=== PATIENT | male | born 2000 ===

== ENCOUNTER 2023-08-28 12:12 | Emergency (ER) | payer MEDICAID, OTHER, SELFPAY ==
[2023-08-28 12:47] VITALS: BP 113/67; PULSE 82; RESP 20; TEMP 37.1; O2SAT 98; BMI 26.2
--- NOTE | 2023-08-28 12:48 | ED.GENADULT ---
HPI - General Adult General Chief complaint: Upper Respiratory Symptoms Stated complaint: quest sinus infection Time Seen by Provider: 08/28/23 14:39 History of Present Illness HPI narrative: Patient complains of runny nose and body aches since yesterday, along with some congestion, he is otherwise fine he is tolerating p.o. is not short of breath he has no chest pain no abdominal pain no nausea vomiting or diarrhea no sore throat no sputum no cough no rash Related Data Previous Rx's Medication Instructions Recorded acetaminophen 500 mg tablet 1,000 mg (2 x 500 mg) PO QID PRN 08/28/23 pain #30 tabs nirmatrelvir 300 mg (150 mg See Rx Instructions PO .COMPLEX 08/28/23 x2)-ritonavir 100 mg tablet,dose #30 ea pack (Paxlovid) oxymetazoline 0.05 % nasal spray 2 spray intranasal Q12H PRN nasal 08/28/23 congestion 4 days #30 mL Allergies Allergy/AdvReac Type Severity Reaction Status Date / Time amoxicillin Allergy Hives Verified 08/28/23 12:50 PMFSH Past Medical History Source: nursing notes reviewed Social History Social History Advance Directives: No Advance Directives Information Provided: No Physical Exam ED Vital Signs: Vital Signs - 24 hr 08/28/23 12:47 Temperature 98.8 F Pulse Rate 82 Respiratory Rate 20 Blood Pressure 113/67 Pulse Oximetry 98 Oxygen Delivery Method Room Air BMI result Body Mass Index 26.2 General appearance is comfortable, cooperative no acute distress Eyes no redness or discharge The pharynx is clear without redness swelling or exudate mucous membranes are moist voice is normal The neck is supple The chest is clear to auscultation bilateral with full symmetric equal breath sounds Heart no murmur Abdomen soft nontender Extremities range of motion x4 Skin no rash Neuro no focal deficits Course Course Course Narrative: This is an RME: Additional HPI, ROS, PE not included below will be deferred to primary provider. This is a [id number]-male, with a hx of asthma and anxiety, presenting to the emergency department with complaints of sinus congestion and headaches x 1 day. Plan: Viral swabs/strep test Well-appearing patient was main symptom is body aches minor fatigue and a runny nose but otherwise very well-appearing with a normal exam tested positive for COVID He is given a prescription for paxlovid and is discharged Medical Decision Making Lab Data Labs: Lab Results 08/28/23 Range/Units 13:04 Influenza Type A (PCR) NEGATIVE (Negative) Influenza Type B (PCR) NEGATIVE (Negative) RSV RNA Qual (PCR) NEGATIVE (Negative) SARS-CoV-2 RNA (RT-PCR) POSITIVE A (Negative) S. pyogenes GrpA DONNELL Negative (Negative) Discharge Plan Discharge Clinical Impression: COVID Patient Disposition: Home, Self-Care Additional Instructions: You tested positive for COVID, but for were very well appearing, and your exam was normal I wrote the prescription for the COVID medicine paxlovid which is usually very well tolerated The side effect that some people experience is nausea or stomach upset and if this happens and is too much you can stop the medication if it is tolerable continue the medication Return any time any worse condition or any concerns Prescriptions: New Paxlovid 300 mg (150 mg x 2)-100 mg tablets,dose pack See Rx Instructions .ROUTE .COMPLEX Qty: 30 0RF Rx Instructions: take TWO 150 mg tablets of nirmatrelvir with ONE 100 mg tablet of ritonavir twice daily for 5 days oxymetazoline 0.05 % spray,non-aerosol 2 spray intranasal Q12H PRN (Reason: nasal congestion) 4 Days Qty: 30 0RF acetaminophen 500 mg tablet 1,000 mg PO QID PRN (Reason: pain) Qty: 30 0RF Stand Alone Forms: Work/School Release
[2023-08-28 13:21] LABS: IDNOW Serial# 08D9AD1C; Strep A Nucleic Acid Negative (Negative)
[2023-08-28 14:13] LABS: Influenza A PCR NEGATIVE (Negative); Influenza B PCR NEGATIVE (Negative); Resp Syncy Virus RNA Qual PCR NEGATIVE (Negative); SARS COV2 PCR INHOUSE POSITIVE (Negative)
== END 2023-08-28 15:55 | disposition home or self-care (01) ==
PROVIDERS: Physician Assistant Medical; Emergency Provider Emergency Medicine
DX: U07.1 COVID-19 (principal); M91.0 Juvenile osteochondrosis of pelvis; R09.89 Other specified symptoms and signs involving the circulatory and respiratory systems; Z79.899 Other long term (current) drug therapy
CPT/HCPCS: 0241U; 87651; 99282; 99283

== ENCOUNTER 2024-05-08 14:13 | Outpatient (AMB) | payer OTHER, SELFPAY ==
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
[2024-05-08 14:25] VITALS: BP 122/80; PULSE 67; O2SAT 98; BMI 29.0
== END 2024-05-08 15:12 | disposition home or self-care (01) ==
PROVIDERS: Visit Provider Physician Assistant
DX: S33.5XXA Sprain of ligaments of lumbar spine, initial encounter (principal); V89.2XXA Person injured in unspecified motor-vehicle accident, traffic, initial encounter; M62.838 Other muscle spasm
CPT/HCPCS: 99204

== ENCOUNTER 2024-06-04 07:58 | Outpatient (AMB) | payer OTHER, SELFPAY ==
[2024-06-04 08:00] VITALS: BP 102/68; PULSE 71; O2SAT 96; BMI 28.7
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
== END 2024-06-04 08:56 | disposition home or self-care (01) ==
DX: M25.522 Pain in left elbow (principal); M54.50 Low back pain, unspecified; V89.2XXA Person injured in unspecified motor-vehicle accident, traffic, initial encounter; Z04.3 Encounter for examination and observation following other accident

== ENCOUNTER → 2024-06-04 07:58 | Outpatient (BNVA) | payer OTHER, SELFPAY | DX: M54.50 Low back pain, unspecified (principal); M25.522 Pain in left elbow; V89.2XXD Person injured in unspecified motor-vehicle accident, traffic, subsequent encounter | CPT/HCPCS: 96127; 99202 ==

== ENCOUNTER 2024-07-04 09:49 | Outpatient (AMB) | payer OTHER, SELFPAY ==
[2024-07-04 09:50] VITALS: BP 114/66; PULSE 67; O2SAT 97; BMI 29.0
--- NOTE | 2024-07-04 09:50 | A.OFFPC_ITS ---
Vital Signs 3 07/04/24 09:50 Height 5 ft 3 in Weight 164 lb BMI 29.0 BP 114/66 Blood Pressure Location Lt brachial Position Sitting Pulse 67 Pulse Source Pulse Oximeter Pulse Oximetry (%) 97 Oxygen Delivery Method Room Air Intake Visit Reasons: Annual Exam Rerecording Mixer Required: No Allergies amoxicillin Allergy (Verified 07/04/24 10:12) Hives Medication List - Last Reconciled 07/04/24 by Lita Wray PA-C nicotine (polacrilex) 4 mg buccal Q2H valacyclovir 500 mg PO BID 6 days Tobacco use date assessed: 07/04/24 Dental Screening Dental Screen Date: 06/04/24 Did you have a dental visit in the last 12 months?: Yes Did you have a dental problem in the last 6 months where you did not have access to dental care?: No Was dental information given to patient?: Patient has dentist HPI Annual Exam 2 HPI0 Details 24-year-old male with past medical histo ry of asthma, ADHD, PTSD and herpes simplex virus coming in for annual exam. Patient has not been working with physical therapy for his back or elbow pain. He began working with a chiropractor for his back pain several weeks ago which has been improving he sees a chiropractor Monday and Monday. He also mentions he has a lesion on his forehead which began initially as a pimple which he picked at which then change to a skin tag which he removed twice. The lesion has returned and is painful and we will bleed when he picks at it. He has a history of depression anxiety and declines the need for medication or counselor at this time. [facility] Social History Housing: Apartment Patient Tobacco Use Status: Current everyday Tobacco user Tobacco use type: Cigar Cigarettes Per Day: 2 service: No Current occupational status: employed Cognitive needs: No Hearing needs: No Vision needs: No Questionnaire PHQ-9 Over the last 2 weeks, how often have you been bothered by any of the following problems? 1. Little interest or pleasure in doing things: several days 2. Feeling down, depressed, or hopeless: several days 3. Trouble falling or staying asleep, or sleeping too much: several days 4. Feeling tired or having little energy: several days 5. Poor appetite or overeating: several days 6. Feeling bad about yourself - or that you are a failure or have let yourself or your family down: several days 7. Trouble concentrating on things, such as reading the newspaper or watching television: several days 8. Moving or speaking so slowly that other people could have noticed. Or the opposite - being so fidgety or restless that you have been moving around a lot more than usual: not at all 9. Thoughts that you would be better off or of hurting yourself in some way: not at all Total score: 7 Depression Screening Interpretation: Positive Depression Screening Follow-up: Existing condition and Declines treatment Depression Screening Done: Yes 99314 - PHQ-9 Billing: Yes Source: Developed by Drs. Jonathan Hsu, Rohini Rios, Aj Bishop and colleagues, with an educational radha from [employer]. Thrive Questionnaire Date Thrive assessed: 06/04/24 AUDIT C Alcohol Use Questionnaire (AUDIT-C) 1. How often do you have a drink containing alcohol?: Monthly or less 2. How many drinks containing alcohol do you have on a typical day when you are drinking?: 1 or 2 3. How often do you have six or more drinks on one occasion?: Less than monthly Total Score: 2 DOMENICO-7 AMB Questionnaire DOMENICO-7 Date DOMENICO - 7 assessed: 06/04/24 Feeling nervous, anxious, or on edge: 1 = Several days Not being able to stop or control worryin = More than half the days Worrying too much about different things: 2 = More than half the days Trouble relaxin = More than half the days Being so restless that it is hard to sit still: 2 = More than half the days Becoming easily annoyed or irritable: 2 = More than half the days Feeling afraid as if something awful might happen: 2 = More than half the days Total DOMENICO-7 score (0-4 normal; 5-9 mild; 10-14 moderate; 15-21 severe): 13 Source: Developed by Drs. Jonathan Hsu, Rohini Rios, Aj Bishop and colleagues, with an educational radha from [employer]. DOMENICO-7 Assessment Billing DOMENICO-7 Assessment Tool: DOMENICO-7 Assessment 87321 Review of Systems Const Denies body aches, Denies fatigue, Denies fever(s), Denies frequent falls, Denies headache(s) and Denies weakness Eyes Reports blurry vision and Denies change in vision ENT Denies dysphagia, Denies dizziness, Denies facial pain, Denies headache(s), Denies nasal congestion and Denies odynophagia Card Denies chest pain, Denies syncope, Denies irregular heart rhythm, Denies leg edema, Denies lightheadedness and Denies dyspnea Resp Denies cough and Denies dyspnea GI Denies abdominal pain, Denies constipation, Denies dysphagia, Denies dyspepsia, Reports diarrhea, Denies nausea, Denies odynophagia and Denies vomiting Denies dysuria, Denies urinary frequency, Denies urinary hesitancy and Denies urinary urgency Musc Details: Elbow pain Reports back pain and Denies myalgias Skin/Breast Reports as per HPI Neuro Denies dizziness, Denies syncope, Denies frequent falls, Denies headache(s) and Denies weakness Psych Reports anxiety and Reports depression Endo Denies fatigue Physical exam (Primary Care) Vital Signs: Last Vital Signs Pulse 67 07/04/24 09:50 BP 114/66 07/04/24 09:50 Pulse Ox 97 07/04/24 09:50 Oxygen Delivery Method Room Air 07/04/24 09:50 BMI result Body Mass Index 29.0 Tobacco/Smoking Status: Tobacco use Status Tobacco use date assessed 07/04/24 07/04/24 09:54 Patient Tobacco Use Status Current everyday Tobacco 07/04/24 09:54 Tobacco use type Cigar 07/04/24 09:54 PHQ-9: PHQ-9 Score PHQ-9: Total score 7 07/04/24 10:25 Depression Screening Interpretation: Positive Depression Screening Follow-up: Existing condition and Declines treatment Thrive Assessment: Date of Thrive Assessment Date Thrive assessed 06/04/24 07/04/24 09:54 Const General: cooperative, healthy appearing, comfortable and no acute distress Orientation/consciousness: patient oriented x3 HENMT Head: Yes normocephalic Ears: hearing grossly normal bilaterally, external ears normal, TM's normal bilaterally and EAC's normal General nose exam: Normal external nose present Face and sinus: Yes normal facial exam and Yes sinuses nontender Mouth: Normal oral and palatal mucosa present and tongue normal Throat: Yes posterior oropharynx normal Eyes General: appearance normal, both eyes and all related structures Conjunctivae: conjunctivae normal Pupils: Equal, round and reactive pupils present EOM: EOMs intact bilaterally and No Nystagmus present Neck Neck: Yes normal visual inspection, Yes full ROM and Yes no lymphadenopathy Chest Chest palpation & inspection: normal inspection of the chest Resp Effort & Inspection: normal respiratory effort Auscultation: clear to auscultation bilaterally, no crackles, no rales, no rhonchi, no wheezes and breath sounds present Cardio Rate: regular rate Rhythm: regular rhythm Peripheral pulses: radial pulses present and dorsalis pedis present GI Inspection: Yes normal to inspection and No Abdominal wall edema Palpation (GI): Soft to palpation, not firm and nontender Auscultation: normal bowel sounds Rectal Exam - Male: Yes deferred General: Yes no CVA tenderness Back/Spine/Pelvis Back: no CVA tenderness Skin Other: 1-2 cm lesion on left side of forehead that does not appear infected Full body images: 2 1. Lesion on forehead Neuro General: patient oriented x3 Cranial nerves: Yes Equal, round and reactive pupils present, Yes Midline tongue present, Yes Ability to bilaterally elevate shoulders present and No Nystagmus present Gait exam (Neuro): Normal gait present Extrem General: Yes normal to inspection, Yes full ROM, No no pedal edema and No edema Psych Speech and movement: Normal speech and movement present Affect: normal affect Insight: Good insight present (Psych) Judgement: Good judgement present (Psych) Office Procedures Flu Questionnaire Does the patient have a severe egg allergy?: No Does the patient have severe life threatening allergies?: No Does the patient have a fever or illness today?: No Has the patient ever had Guillain-Vauxhall Syndrome?: No Has the patient ever had any past reaction to a flu shot?: No Immunizations Fluarix Triv [id number] (PF) 45 mcg (15 mcg x 3)/0.5 mL IM syringe Performing Provider: Lita Wray PA-C [place] [facility] [facility] Administered by: ANGIE Puente on 07/04/24 09:56 2 Dose Route Admin Location Dispensed Lot Number Expiration Date [facility] [employer] 0.5 mL IM Left Deltoid 0.5 mL [id number] 03/10/25 [id number] GLAXOSMITHKLINE 2 VIS Given Date VIS Provided VIS Publication Date 07/04/24 Single Vaccine 21 Eligibility Eligibility Date Funding Source Not VFC Eligible 07/04/24 Private Boostrix Tdap 2.5 Lf unit-8 mcg-5 Lf/0.5 mL intramuscular syringe Performing Provider: Lita Wray PA-C [place] [facility] Administered by: ANGIE Puente on 07/04/24 10:25 2 Dose Route Admin Location Dispensed Lot Number Expiration Date NDC [employer]r 0.5 mL IM Right Deltoid 0.5 mL [id number] 06/08/25 [id number] GLAXOSMITHKLINE 2 VIS Given Date VIS Provided VIS Publication Date 07/04/24 Single Vaccine 21 Eligibility Eligibility Date Funding Source Not [facility] Eligible 07/04/24 Private Coding Level of Care Code Est Pt Level 3 (36946) Est Pt Prev Care 18-39y(84223) Diagnoses PTSD (post-traumatic stress disorder) F43.10 ADHD F90.9 Asthma J45.909 Herpes simplex B00.9 Annual physical exam Z00.00 Atypical nevi D22.9 Low back pain M54.50 Elbow pain M25.529 Additional Codes DOMENICO-7 Assessment Billing - DOMENICO-7 Assessment Tool: DOMENICO-7 Assessment 84831 ([id number]) Assessment & Plan Assessment & Plan (1) PTSD (post-traumatic stress disorder): Code(s): F43.10 - Post-traumatic stress disorder, unspecified Category: Medical Plan: Declines the need for medication or counselor at this time. (2) ADHD: Code(s): F90.9 - Attention-deficit hyperactivity disorder, unspecified type Category: Medical Plan: Declines treatment at this time. (3) Asthma: Code(s): J45.909 - Unspecified asthma, uncomplicated Category: Medical Plan: Asthma currently controlled without medication management. Avoid triggers such as allergies. (4) Herpes simplex: Code(s): B00.9 - Herpesviral infection, unspecified Category: Medical Plan: Continue on valacyclovir as needed. Reviewed how to prevent the spread of herpes simplex virus. (5) Annual physical exam: Code(s): Z00.00 - Encounter for general adult medical examination without abnormal findings Category: Medical Plan: Patient is up-to-date on all recommended routine screenings and vaccinations for his age. Ordered for updated blood work and we will follow up in 1 year or sooner pending blood work results or if patient has additional concerns. (6) Atypical nevi: Code(s): D22.9 - Melanocytic nevi, unspecified Category: Medical Plan: Lesion on the forehead unclear etiology referral placed to Dermatology for further evaluation. (7) Low back pain: Code(s): M54.50 - Low back pain, unspecified Category: Medical Plan: Continue to work with chiropractor as this seems to be improving. Continue to use Tylenol and ibuprofen as needed as well as topical muscle rubs. (8) Elbow pain: Code(s): M25.529 - Pain in unspecified elbow Category: Medical Plan: Advised patient to follow up with physical therapy as he has not been evaluated or treated for this concern and continues to have symptoms. Plan This note was constructed using voice recognition software. While every effort has been made to ensure accuracy and sales and distribution clerk, still areas may have been included sometimes these areas may affect the content or meeting of the given symptoms. Total time spent caring for the patient today was 30 minutes. This includes time spent before the visit reviewing the chart, time spent during the visit, and time spent after the visit and documentation. Orders: Orders 2 Complete Blood Count Auto Diff Today Z00.00 - Encounter for general adult medical examination without abnormal findings TSH reflex Free T4 Today Z00.00 - Encounter for general adult medical examination without abnormal findings Vitamin B12 and Folate Today Z00.00 - Encounter for general adult medical examination without abnormal findings Vitamin D 25-OH (D2 and D3) Today Z00.00 - Encounter for general adult medical examination without abnormal findings Influenza [id number] Immunization Today Z23 - Encounter for immunization TDaP Immunization Today Z23 - Encounter for immunization Comprehensive Met. Panel Today Z00.00 - Encounter for general adult medical examination without abnormal findings Free T4 (Free Thyroxine) Today Z00.00 - Encounter for general adult medical examination without abnormal findings Referrals 2 Dermatology Referral D22.9 - Melanocytic nevi, unspecified
== END 2024-07-04 10:37 | disposition home or self-care (01) ==
DX: Z00.00 Encounter for general adult medical examination without abnormal findings (principal); J45.909 Unspecified asthma, uncomplicated; F43.10 Post-traumatic stress disorder, unspecified; F90.9 Attention-deficit hyperactivity disorder, unspecified type; B00.9 Herpesviral infection, unspecified; D22.9 Melanocytic nevi, unspecified; M54.50 Low back pain, unspecified; M25.522 Pain in left elbow

== ENCOUNTER → 2024-07-04 09:49 | Outpatient (BNVA) | payer OTHER, SELFPAY | DX: Z00.01 Encounter for general adult medical examination with abnormal findings (principal); Z23 Encounter for immunization; F43.10 Post-traumatic stress disorder, unspecified; F90.9 Attention-deficit hyperactivity disorder, unspecified type; J45.909 Unspecified asthma, uncomplicated; B00.9 Herpesviral infection, unspecified; C22.9 Malignant neoplasm of liver, not specified as primary or secondary; M54.50 Low back pain, unspecified | CPT/HCPCS: 90471; 90472; 90656; 90715; 96127; 99212; 99395 ==

== ENCOUNTER 2025-02-16 09:28 | Emergency (ER) | payer OTHER, SELFPAY ==
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
[2025-02-16 09:38] VITALS: BP 113/66; BP 152/88; PULSE 100; PULSE 93; RESP 18; TEMP 36.7; O2SAT 97; O2SAT 98; BMI 28.3
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
[2025-02-16] MEDS: Ibuprofen 600 MG TABLET PO (11:17)
[2025-02-16] MEDS: Acetaminophen 325 MG TABLET 650 MG PO (11:18)
[2025-02-16 13:03] VITALS: BP 113/66; PULSE 93; RESP 18; TEMP 36.7; O2SAT 98
== END 2025-02-16 13:05 | disposition home or self-care (01) ==
PROVIDERS: Emergency Provider Emergency Medicine
DX: S63.602A Unspecified sprain of left thumb, initial encounter (principal); S20.212A Contusion of left front wall of thorax, initial encounter; S50.11XA Contusion of right forearm, initial encounter; V43.52XA Car driver injured in collision with other type car in traffic accident, initial encounter; Y93.89 Activity, other specified; Y92.411 Interstate highway as the place of occurrence of the external cause; Y99.9 Unspecified external cause status
CPT/HCPCS: 71101; 73090; 73130; 99283; 99284

== ENCOUNTER → 2025-02-16 10:55 | Outpatient (BNV) | payer SELFPAY | PROVIDERS: Emergency Provider Emergency Medicine; Visit Provider Radiology Diagnostic Radiology | DX: R07.89 Other chest pain (principal); M79.645 Pain in left finger(s); M79.631 Pain in right forearm | CPT/HCPCS: 71101; 73090; 73130 ==

== ENCOUNTER 2025-08-03 11:16 | Emergency (ER) | payer OTHER, SELFPAY ==
[2025-08-03 11:42] VITALS: BP 117/66; PULSE 64; RESP 16; TEMP 36.4; O2SAT 98; BMI 24.8
--- NOTE | 2025-08-03 11:47 | ED_ITS ---
HPI - General Adult General Chief complaint: Skin/Abscess/Foreign Body Stated complaint: lump on groin? Time Seen by Provider: 08/03/25 12:12 Source: patient Mode of arrival: ambulatory Limitations: no limitations History of Present Illness ED Provider: Carol Diaz APRN HPI narrative: 25-year-old male with a history of genital herpes who presents the ER with complaints of painful area to the shaft of the penis with swelling 4 days. patient reports he noticed a pimple on the shaft of his penis with an ingrown hair and he manipulated it with his fingers until he was able to get some pus out. Since then he has noticed increased swelling and pain to the area. No fevers, chills, urinary symptoms. Patient reports he has not had a new sexual partner and more than 3 months but would like to be tested for STDs. Will hold on treatment until he knows what his results are. Related Data Previous Rx's ?Medication ?Instructions ?Recorded nicotine (polacrilex) 4 mg gum 4 mg buccal Q2H #40 ea 06/04/24 valacyclovir 500 mg tablet 500 mg PO BID 6 days #12 ta bs 06/04/24 cyclobenzaprine 10 mg tablet 10 mg PO TID PRN muscle s pasm #10 02/16/25 tabs lidocaine 5 % topical patch 1 patch topical DAILY #15 ea 02/16/25 doxycycline monohydrate 100 mg 100 mg PO BID #14 caps 08/03/25 capsule Allergies Allergy/AdvReac Type Severity Reaction Status Date / Time amoxicillin Allergy Hives Verified 08/03/25 11:47 Review of Systems 2 Review of Systems: Yes all other systems are reviewed and are negative Constitutional: Constitutional: Reports no additional constitutional complaints, Denies body ache(s), Denies chills, Denies fever(s), Denies headache(s) and Denies weakness Eyes: Eyes: Reports no additional eye complaints and Denies change in vision ENT: Reports system reviewed and no additional complaints, except as documented, Denies dizziness, Denies headache(s), Denies nasal congestion, Denies nasal discharge and Denies neck pain Cardiovascular: Cardiovascular: Reports no additional cardiovascular complaints, Denies chest pain, Denies leg edema and Denies dyspnea Respiratory: Respiratory: Reports no additional respiratory complaints, Denies cough and Denies dyspnea Gastrointestinal: Gastrointestinal: Reports no additional gastrointestinal complaints, Denies abdominal pain, Denies diarrhea, Denies nausea and Denies vomiting Genitourinary: Genitourinary: Denies urinary incontinence Musculoskeletal: Musculoskeletal: Reports no additional musculoskeletal complaints, Denies back pain, Denies arthralgias, Denies joint swelling, Denies neck pain, Denies numbness and Denies tingling Integumentary/Breasts: Skin/Breast: Reports system reviewed and no additional complaints, except as docu, Reports furuncle, Reports swelling, Reports erythema and Denies rash Neurologic: Reports system reviewed and no additional complaints, except as documented, Denies Abnormal speech present, Denies dizziness, Denies headache(s), Denies numbness, Denies tingling and Denies weakness PMFSH Past Medical History Attestation statement: The following information was validated with the patient. Source: old records reviewed and nursing notes reviewed Social History Social History Housing: Apartment Patient Tobacco Use Status: Current everyday Tobacco user Tobacco use type: Cigar Cigarettes Per Day: 2 Smoked in Last 30 Days: No Substance Use Type: Marijuana Advance Directives: No Advance Directives Information Provided: Yes service: No Current occupational status: employed Cognitive needs: No Hearing needs: No Vision needs: No Physical Exam ED Vital Signs: Vital Signs - 24 hr 08/03/25 11:42 08/03/25 12:10 08/03/25 14:04 Temperature 97.6 F 97.8 F 98 F Pulse Rate 64 66 70 Respiratory Rate 16 16 16 Blood Pressure 117/66 115/54 L 123/47 L Pulse Oximetry 98 99 98 Oxygen Delivery Method Room Air Room Air Room Air BMI result Body Mass Index 24.8 Const General: cooperative, healthy appearing, comfortable and no acute distress Orientation/consciousness: patient oriented x3 Limitations: no limitations HENMT Head: Yes normal to inspection Ears: hearing grossly normal bilaterally General nose exam: Normal external nose present Face and sinus: Yes normal facial exam Mouth: Normal oral and palatal mucosa present Throat: Yes posterior oropharynx normal Eyes General: appearance normal, both eyes and all related structures Pupils: Equal, round and reactive pupils present Neck Neck: Yes normal visual inspection Chest Chest palpation & inspection: normal inspection of the chest Resp Effort & Inspection: normal respiratory effort Auscultation: clear to auscultation bilaterally Cardio Rate: regular rate Rhythm: regular rhythm Peripheral pulses: Peripheral pulses 2+ throughout GI Inspection: Yes normal to inspection Palpation (GI): Soft to palpation and nontender Auscultation: normal bowel sounds Other: Deana LAURENT dioramist Male genitals images: 2 1. There is an abscess present with ecchymosis surrounding this. There is no fluctuance. No lymphadenopathy Back/Spine/Pelvis Thoracic/Lumbar Spine: thoracic and lumbar spine normal to inspection Skin General skin exam: no rashes or lesions noted Neuro General: patient oriented x3, no focal motor deficits and normal sensation to monofilament Cranial nerves: Yes Equal, round and reactive pupils present Cognition (Neuro): normal cognition Speech: No Abnormal speech present Gait exam (Neuro): Normal gait present Motor exam (neuro): 5/5 motor strength present throughout Extrem General: Yes normal to inspection Course Course Course Narrative: Rapid medical examination performed in triage by Freida Delgadillo PA-C: Patient is a 25 year old assigned male at presenting to the emergency department with a lump on his scrotum. Patient states he had a small lump on his scrotum and he tried to open it but it has gotten much bigger. Detailed physical exam and review of systems are deferred to the collection specialist. Labs ordered. Patient placed back in the waiting room pending room availability and results. Medical Decision Making Medical Decision Making [facility] Narrative: 25-year-old male with a history of genital herpes who presents the ER with complaints of painful area to the shaft of the penis with swelling 4 days. patient reports he noticed a pimple on the shaft of his penis with an ingrown hair and he manipulated it with his fingers until he was able to get some pus out. Since then he has noticed increased swelling and pain to the area. No fevers, chills, urinary symptoms. Patient reports he has not had a new sexual partner and more than 3 months but would like to be tested for STDs. Will hold on treatment until he knows what his results are. There is an abscess present on the dorsal aspect of the shaft of the penis with ecchymosis surrounding this. There is no fluctuance. No lymphadenopathy. there is tenderness to palpation This does not appear to be a chancre or typical for HSV Seems more like an infected ingrown hair with now abscess/cellulitis. patient would like STD testing. He is aware the results will take > 24 hours and he will need to return for treatment if he is positive I ordered syphilis, gonorrhea and chlamydia testing. Patient is HSV positive that is known so I did not repeat this. He will go home with antibiotics Differential Diagnosis Differential Diagnoses: The differential diagnosis associated with the presentation includes see above Admission/Observation Consideration of admission/observation: Escalation of care including admission/observation considered Lab Data MDM Lab Attestation statement: I reviewed the patient's lab results. Prescription Management I considered prescription management with: Antibiotic Discharge Plan Discharge Clinical Impression: Abscess of skin or subcutaneous tissue Patient Disposition: Home, Self-Care Instructions: Abscess (ED) Additional Instructions: Warm compresses to the area several times daily keep the area clean and dry we did send testing for gonorrhea, chlamydia and syphilis. We will call you if these results are positive and if you require additional treatment return for increasing swelling, increasing redness, fevers or chills take Motrin or Tylenol for pain if able as needed Prescriptions: New doxycycline monohydrate 100 mg capsule 100 mg PO BID Qty: 14 0RF No Action cyclobenzaprine 10 mg tablet 10 mg PO TID PRN (Reason: muscle spasm) Qty: 10 0RF lidocaine 5 % adhesive patch,medicated 1 patch topical DAILY Qty: 15 0RF Rx Instructions: leave on most painful area for up to 12 hrs nicotine (polacrilex) 4 mg gum 4 mg buccal Q2H Qty: 40 0RF valacyclovir 500 mg tablet 500 mg PO BID 6 Days Qty: 12 3RF Referrals: Lita Wray PA-C [Primary Care Provider, Internal Medicine] Stand Alone Forms: Work/School Release Discharge Date/Time: 08/03/25 14:05 Print Language: Divehi
[2025-08-03 12:10] VITALS: BP 115/54; PULSE 66; RESP 16; TEMP 36.6; O2SAT 99
--- OUTSIDE RECORDS SUMMARY | 2025-08-03 12:17 | XMS_ITS | Data Portability ---
Author Organization [facility], [address] Address [address] [place] [address] Assessment No assessment recorded. Plan of Treatment Reminders Order Date Submit Date Provider Last Modified By Organization Details Last Modified Time Details Appointments None recorded. Lab None recorded. Referral urologist referral 2022 023 [email or web address] Not available 16:28:51 Procedures None recorded. Surgeries None recorded. Imaging None recorded. Medication Orders None recorded. Patient TargetsNo targets recorded. Patient InstructionsNo instructions recorded. Reason for Referral Urologist Referral for Urina ry symptoms Referring Physician: Dell Johnson, Urgent Care, Encounter Date: 03/06/2023 Medical Equipment None Reported. Allergies Allergen ID Allergen Name Allergen Category Reaction Reaction Severity Criticality Documentation Date Start Date Code Code System Note Provider Name and Address Organization Details Recorded Time 090913 amoxicill in medicatio n Not available Not available Not available 03/06/2023 723 RxNorm [facility] 3 14:54:13 Medications Not known to be on any medication Vitals Date Recorded Body height Body mass index (BMI) Body weight Respiratory rate Body temperature Heart rate Oxygen saturation Systolic And Diastolic Provider Name and Address Organization Details Last Updated DateTime 3 162.56 cm 25.7 kg/m2 48595.8 6 g 16 /min 98.6 [degF] 69 /min 98 % 110/69 mm[Hg] GILBERTO Gregory [facility] 3 14:58:08 Social History Question Answer Notes LastModified by Organizat ion Details LastModified Time Which Illicit Or Recreational Drugs Have You Used? Joanne Information not available 03/06/2023 Sex: Unknown Functional Status Question Answer Note LastModified by Organizat ion Details LastModified Time Do you use any illicit or recreational drugs? Yes [email or web address] Information not available 03/06/2023 Do you or have you ever used any other forms of tobacco or nicotine? Yes Information not available 03/06/2023 What is your level of alcohol consumption? None [email or web address] Information not available 03/06/2023 Mental Status None recorded. Family History Nothing Reported. Medical History Condition Response Gout N Cancer, liver N Thyroid disorder N Hyperthyroidism N Rheumatoid arthritis N GI bleeding N Irritable bowel syndrome N Depression N COPD N Pneumonia N Tinnitus, unspecified ear N Cancer, uterus N Mental disorder, NOS N Headaches/Migraines N Insomia N Alzheimer's disease N Anxiety Disorder N Obesity N Arthritis N Cancer N Stroke N Alcohol abuse N Liver disease N Allergy Food/Medication N Cancer, bladder N Peripheral artery disease N Oxygen dependence N Fibromyalgia N Atrial fibrillation N Tinnitus, right ear N Kidney Disease N Deep vein thrombosis DVT leg N Migraine N Disorder of circulatory system N Anxiety N Cancer, brain N Disease of pancreas N Cancer, lung N Eating disorder, unspecified N Cancer, colon N Crohn's disease N Cancer, cervical N N Cancer, breast N Cancer, skin N Coagulation defect, unspecified N Cataract N Asthma Y Congestive heart failure (CHF) N Substance Abuse N Vertigo N Coronary artery disease N Pulmonary Embolism N Cancer, pancreas N Tobacco use disorder N Disease of lung N Allergic rhinitis N Joint disorder, unspecified N Menopause N Back disorder N Drug dependence, unspecified N Hypothyroidism N Disorder kidney N Sickle Cell Anemia N Cancer, ovarian N Antoine's Palsy N Disorder of eye N Cancer, prostate N Allergy Seasonal N Disorder of lymph system N Disorder of urinary system N Drug abuse N Radiculopathy, site unspecified N Myoneural disorder, unspecified N Nervous system disorder N ADHD Y High Cholesterol N Post-herpetic neuralgia N Aneurysm, cerebral N Tinnitus, left ear N Prostate hypertrophy, benign N Disorder of skin/subcutaneous N Osteoarthritis N Disorder of ear N Ovarian cysts N Parkinson's disease N Low back pain N Carpal tunnel syndrome N Anemia N Disorder of muscle N Kidney stone N Bipolar affective disorder N Leukemia, unspecified N Diabetes N Disorder involving the immune mechanism N Endocrine disorder N Seizure N Hyperlipidemia N Eczema N Emphysema, unspecified N Lymphoma N Dementia N Diverticulitis N Lupus N Seizure disorder N Reflux/GERD N Sleep Apnea N Cancer, bone N Cardiac arrhythmia, unspecified N Disorder of thyroid N Disorder of bone N Heart Disease N Disorder of brain N Liver Disorder N Aneurysm, aortic N Hypertension N Osteoporosis N Disease of digestive system, unspecified N Gastroesophageal reflux (GERD) N Past Encounters Encounter ID Performer Location Encounter Start Date Encounter Closed Date Diagnosis/Indication Diagnosis SNOMED-CT Code Diagnosis ICD10 Code Diagnosis IMO Codes Diagnosis Note [id number] [address] [place] [address] 07/31/2020 13:35:42 07/31/2020 14:17:08 [id number] [address] [place] [address] 01/24/2022 12:37:16 01/24/2022 14:46:45 [id number] Dell Johnson MD [address] [place] [address] 03/06/2023 14:15:04 03/06/2023 15:32:29 Urinary symptoms [id number] R39.9 Unable to give a physical medical reason for patient inability to urinate on command but it is possible it is due to anxiety.Fo r further evaluation and to rule out any structural or organic urological problems, referred to Urology Health Concerns Section Related Observation LastModified by Organization Detai ls LastModified Time None Recorded Concern Status LastModified by Organization Details LastModified Time None Recorded Advance Directives Directive None Recorded Payers Insurance Date Sequence Insurance Name Policy Number Policy Zamora Covered Member ID Zamora Member ID Guarantor Name 03/06/2023 1 [employer] - TOGETHER WITH [employer] (MEDICAID REPLACEMENT - HMO) [id number] Onel Thompson [id number] Onel Thompson 03/06/2023 PROMPT PAY Jacqueline Thompson Notes Date Note Type Note Provider Name and Address Organization Details Recorded Time 3 text/html Urinary Problems-MaleReported by PatientGU ProblemsFor source of patient information, patient reportsinformation obtained from patientandpatient arrived at urgent care ambulatory. 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 denies pain). For severity, patient reportsno pain. For associated symptoms, patient reportsno flank pain,no blood in the urine, andno pain during urination. Dell Johnson MD [address] [place] [address] [place], [place], [address], [place] - [facility] 03/06/2023 16:25:04
--- NOTE | 2025-08-03 12:31 | PC.NURSE ---
Patient presents to the ED stating 4 days ago he popped a pimple on his penis and it has been bleeding since. States pain is 10/10. Dressing applied for bleeding. VSS.
[2025-08-03 14:04] VITALS: BP 123/47; PULSE 70; RESP 16; TEMP 36.6; O2SAT 98
[2025-08-03 15:43] LABS: CT PCR Urine NOT DETECTED (Not Detect.); NG PCR Urine NOT DETECTED (Not Detect.)
[2025-08-04 04:54] LABS: Syphilis Screen Nonreactive (Nonreactive)
== END 2025-08-03 14:05 | disposition home or self-care (01) ==
PROVIDERS: Nurse Practitioner Family; Emergency Provider Emergency Medicine Emergency Medical Services
DX: N48.21 Abscess of corpus cavernosum and penis (principal); Z88.0 Allergy status to penicillin
CPT/HCPCS: 36415; 86780; 87491; 87591; 99283; 99284